=== PATIENT | female | born 1980 | race Caucasian/White ===

== ENCOUNTER 2020-09-14 06:32 | Day surgery (SDC) | payer OTHER ==
[~2020-09-14 06:32] MED LIST: ACETAMINOPHEN 1,000 MG/100 ML 100 ML IV ONE
[2020-09-14] MEDS ORDERED: DEXAMETHASONE 10 MG/ML VIAL ONE (06:49)
[2020-09-14] MEDS ORDERED: PROPOFOL 200 MG/20 ML VIAL IVP ONE (06:49)
[2020-09-14] MEDS ORDERED: ONDANSETRON 4 MG/2 ML VIAL ONE ×2 (06:50→10:01)
[2020-09-14] MEDS ORDERED: LIDOCAINE-MPF 2% 5 ML VIAL ONE (06:50)
[2020-09-14 06:52] LABS: HCG UR QUAL NEGATIVE
[2020-09-14] MEDS ORDERED: LACTATED RINGERS 1,000 ML IV ONE ×3 (07:04→09:53)
--- NOTE | 2020-09-14 07:21 | ANESTHESIA ---
Pre-Anesthesia VS, & Labs - Diagnosis Abnormal Bleeding - Procedure Myosure/D&C/Ablation Vital Signs: Temp Pulse Resp BP Pulse Ox 36.3 C L 80 16 121/92 H 98 09/14/20 06:49 09/14/20 06:49 09/14/20 06:49 09/14/20 06:49 09/14/20 06:49 Height: 5 ft 1.42 in Weight (kg): 58.6 kg Body Mass Index: 24.0 BMI Classification: Healthy weight - NPO >8 hours Last Fluid Intake: 2100 - Is Patient ?: No - Lab Results Current Lab Results: COVID - Lab results reviewed: Yes Home Medications and Allergies Home Medications: Ambulatory Orders No Known Home Medications 09/07/20 No Known Home Medications 09/07/20 Allergies/Adverse Reactions: Allergies Allergy/AdvReac Type Severity Reaction Status Date / Time No Known Drug Allergies Allergy Verified 09/07/20 11:39 Anes History & Medical History - Anesthetic History Anesthesia Complications: reports: No previous complications Family history of Anesthesia Complications: Denies Family history of Malignant Hyperthermia: Denies - Medical History Cardiovascular: reports: None Pulmonary: reports: None Gastrointestinal: reports: None Urinary: reports: None Musculoskeletal: reports: None Endocrine/Autoimmune: reports: None Skin: reports: None Smoking Status: Never smoker History of Cancer?: No - Surgical History Gynecologic: section Orthopedic: ACL reconstruction Exam General: Alert, Oriented x3, Cooperative, No acute distress Dental: WNL Mouth Openin Fingerbreadth Neck Mobility: Normal Mallampati classification: I Respiratory: Lungs clear, Normal breath sounds, No respiratory distress, No accessory muscle use Cardiovascular: Regular rate, Normal S1, Normal S2, No murmurs Mental/Cognitive Status: Alert/Oriented X3, Normal for patient Cognitive Status: Within normal limits Plan Anesthesia Type: General Consent for Procedure(s) Verified and Reviewed: Yes Code Status: Attempt Resuscitation ASA classification: 1-Healthy patient Is this case an emergency?: No
[2020-09-14] MEDS ORDERED: fentaNYL 100 MCG/2 ML VIAL IVP PRN (07:22)
[2020-09-14] MEDS ORDERED: METOCLOPRAMIDE 10 MG/2 ML VIAL IVP PRN (07:22)
[2020-09-14] MEDS ORDERED: MORPHINE 2 MG/ML CARPUJECT IVP PRN (07:22)
[2020-09-14] MEDS ORDERED: NALOXONE 0.4 MG/ML VIAL IVP PRN (07:22)
[2020-09-14] MEDS ORDERED: ePHEDrine 50 MG/ML VIAL IVP PRN (07:22)
[2020-09-14] MEDS ORDERED: ONDANSETRON 4 MG/2 ML VIAL IVP PRN ×2 (07:22→08:39)
[2020-09-14] MEDS ORDERED: ATROPINE ABBOJECT 1 MG/10 ML SYRINGE IVP PRN (07:22)
[2020-09-14] MEDS ORDERED: HYDROmorphone 0.5 MG/0.5 ML SYRINGE IVP PRN (07:22)
[2020-09-14] MEDS ORDERED: SILVER NITRATE APPLICATOR TOP ONE (07:34)
[2020-09-14] MEDS ORDERED: LIDOCAINE 2%-EPI 1:100000 20 ML MDV ONE (07:34)
[2020-09-14] MEDS ORDERED: MIDAZOLAM 2 MG/2 ML VIAL ONE (07:36)
[2020-09-14] MEDS ORDERED: fentaNYL 100 MCG/2 ML VIAL ONE (07:36)
[2020-09-14] MEDS ORDERED: KETOROLAC 30 MG/ML VIAL ONE (07:37)
[2020-09-14] MEDS ORDERED: LACTATED RINGERS 1,000 ML IV SCH (08:00)
[2020-09-14] MEDS ORDERED: LIDOCAINE 2%-EPI 1:100000 20 ML MDV SUBQ ONE (08:02)
[2020-09-14] MEDS ORDERED: oxyCODONE 5 MG TABLET PO PRN (08:39)
[2020-09-14] MEDS ORDERED: diphenhydrAMINE 25 MG CAPSULE PO PRN (08:39)
[2020-09-14] MEDS ORDERED: MORPHINE 10 MG/ML VIAL IVP ONE (08:39)
--- NOTE | 2020-09-14 08:47 | OPERATIVE REPORT ---
Operative Report - General Procedure Date: 09/14/20 Planned Procedure: Diagnostic Hysteroscopy, Dilation and Curettage, Novasure endometrial ablation Pre-Op Diagnosis: Heavy menstrual bleeding Procedure Performed: Diagnostic hysteroscopy, Novasure endometrial ablation Post Op Diagnosis: Heavy menstrual bleeding - Procedure Note Primary Surgeon: Afia Anesthesia Provider: Kike Anesthesia Technique: General LMA, Local Pathology: None IV Fluids (mL): 600 (Lactated Ringers) Estimated Blood Loss (mL): 2 Urine Output (mL): 100 Indications: 40 year old female using condoms for contraception with heavy menstrual bleeding, declined hormone contraceptive medication or medical therapy for management, desiring surgical management with endometrial ablation. The patient was counseled and consented for the procedure. Findings: Exam under anesthesia: Uterus with normal size, shape, and contour. No adnexal masses. Hysteroscopy: Uterus sounded to 8.5cm, uterine length 4.5cm, uterine width 4.7cm. Normal uterine cavity without masses/polyps/fibroids. Normal bilateral tubal ostia. Post-ablation hysteroscopy with appropriately charred endometrium throughout. Total ablation time: 1:39, power 116 [email or web address] Complications: None - Other Other Information/Narrative: OPERATIVE NOTE: The patient was counseled and consented for the procedure. She was taken to the operating room where general LMA anesthesia was obtained without complication. A surgical time-out was performed. The patient was prepped and draped in the usual sterile fashion in yellow-fin stirrups. The bladder was drained with a straight catheter. A bivalve speculum was placed in the vagina. The anterior lip of the cervix was grasped with a single toothed tenaculum. A local paracervical block using 10 ml of 2% lidocaine with epinephrine was placed at 2, 4, 8, and 10 o'clock positions of the cervix. The uterus was sounded to 8.5cm. The cervix was dilated to #8 Dilma dilator. The diagnostic hysteroscope was inserted and the uterine cavity was noted to be normal throughout with normal bilateral tubal ostia. The hysteroscope was removed. The cervix and uterine measurements were obtained. The Novasure device was inserted and the uterine width was obtained using set up operator tool recommended maneuvers. Endometrial ablation was performed without complication. The Novasure device was removed and the diagnostic hysteroscope was inserted, notable for global charring of endometrium. The hysteroscope was removed. The tenaculum was removed from the cervix and the tenaculum sites were hemostatic with pressure. The speculum was removed from the vagina. All instruments were removed from the vagina. The patient tolerated the procedure well. She was awakened from anesthesia without complication and transferred to PACU in stable condition.
[2020-09-14] MEDS ORDERED: oxyCODONE 5 MG TABLET ONE (09:37)
[2020-09-14] MEDS ORDERED: HYDROmorphone 0.5 MG/0.5 ML SYRINGE ONE (09:55)
[2020-09-14] MEDS ORDERED: SCOPOLAMINE PATCH TOP ONE (10:42)
[2020-09-14] MEDS ORDERED: SCOPOLAMINE PATCH TOP SCH (11:00)
[2020-09-14 11:08] VITALS: BP 114/78
[2020-09-14] MEDS ORDERED: ONDANSETRON ODT 4 MG TABLET ONE (11:08)
--- NOTE | 2020-09-14 14:17 | ANESTHESIA POST OP EVALUATION ---
Anesthesia Post Eval - Post Anesthesia Eval Vitals: Last Vital Signs Temp 37 C 09/14/20 10:50 Pulse 63 09/14/20 10:50 Resp 18 09/14/20 10:50 BP 114/78 09/14/20 10:50 Pulse Ox 99 09/14/20 10:50 CV Function Including HR & BP: positive: Stable Pain Control: positive: Satisfactory Nausea & Vomiting: positive: Negative, Addtional Therapies Ordered (scope patch) Mental Status: positive: Baseline Respiratory Status: Airway Patent Hydration Status: Satisfactory Anesthesia Complications: positive: None
== END 2020-09-14 06:33 | disposition home or self-care (01) ==
LOC: SDS 06:32
PROVIDERS: ATTEND Obstetrics & Gynecology
DX: N92.0 Excessive and frequent menstruation with regular cycle (principal)
CPT/HCPCS: 81025